=== PATIENT | female | born 1995 | race Caucasian/White ===

== ENCOUNTER 2021-02-25 11:53 | Outpatient (CLI) | payer BC, SELFPAY ==
[2021-02-25 12:53] VITALS: BP 128/79; PULSE 100; TEMP 37.3
[2021-02-25 13:08] VITALS: BP 128/79; PULSE 100
--- NOTE | 2021-02-25 13:26 | W.OBNST ---
Date of service: 02/25/21 Time of Service: 13:26 NST Evaluation Reason for NST Reasons for Nonstress Test: GDM- PO MEDICATION Gestational Age Gestational Age in Weeks and Days: 32 Weeks and 5Days Test and Monitor Explained Test/Monitor Explained: Test Explained, Monitor Explained and Patient Verbalized Understanding Vital Signs Blood Pressure: 128/79 Pulse: 100 Temperature: 37.3 C NST Information Date on Monitor: 02/25/21 Time on Monitor: 12:53 Date off Monitor: 02/25/21 Time off Monitor: 13:20 Total Time on Monitor: 27 NST Interventions: PO Hydration and Reposition Patient NST Evaluation Patient States Movement: Present Variability: Moderate 6-25 bpm Accelerations: 15x15 Decelerations: None NST Results: Reactive Note NST Note Note: Pt reported cramping and spotting today, wearing a pad, had one small clot. Reported some contraction pain low in her abdomen about every 10 minutes. No sex recently, no new activities or falls. Had her present for NST and exam. NST was category one, reactive. Good accels despite early GA. No contractions while here. No bleeding on exam. SVE 0/high/long. discharge consistent with Vaginal candidiasis. This could possibly have caused vaginal irritation and spotting. Recommend treatment with miconazole. She has also not yet picked up Metformin as prescribed . Encouraged her to do so today. DC home now. Call if any ongoing bleeding. Otherwise, fup as scheduled 03/08. NST Reviewed and Verified by: Brenton Anders
[2021-02-25 13:30] VITALS: BP 128/79; PULSE 100; TEMP 37.3
== END 2021-02-25 13:28 | disposition home health service (06) ==
LOC: BCD 12:45 → OBS 12:51
PROVIDERS: PCP Family Medicine; Visit Provider Family Medicine
DX: O24.415 Gestational diabetes mellitus in pregnancy, controlled by oral hypoglycemic drugs (principal); Z3A.32 32 weeks gestation of pregnancy
CPT/HCPCS: 59025

== ENCOUNTER 2021-03-22 01:10 | Outpatient (CLI) | payer BC, SELFPAY ==
--- NOTE | 2021-03-22 | DI.US_ITS ---
Exam(s) US OB DELIO WEIGHT EXAM: US OB DELIO WEIGHT CLINICAL HISTORY: GESTATIONAL DIABETES IN ,o24.419,F/U. TECHNIQUE: Transabdominal obstetrical ultrasound was performed. COMPARISON: No exams were available for comparison FINDINGS: There is a single viable intrauterine gestation with cardiac activity identified-108 bpm The fetus is presently in cephalic position . Amniotic fluid: There is a normal amount of amniotic fluid with an DELIO of 12.5cm. Placental location: The placenta is anterior grade 2,with no evidence of placenta previa. Dating parameters place this at approximately 36 weeks and 6 days gestational age, implying EVAN of April 13, 2021. BPD measures 36 weeks and 2 days HC measures 37 weeks and 2 days AC measures 37 weeks and 1 day FL measures 36 weeks and 5 days Estimated weight is 3088 gm-6 pounds 13 ounces Fetus is at the 72nd percentile on the Hadlock scale. IMPRESSION:: Viable 3rd trimester gestation, as described above. This is presently in cephalic position. Normal amount of amniotic fluid Anterior placenta. No placenta previa. DATA REPOSITORY:
== END 2021-03-22 01:30 ==
PROVIDERS: PCP Family Medicine; Visit Provider Family Medicine
DX: O24.419 Gestational diabetes mellitus in pregnancy, unspecified control (principal)
CPT/HCPCS: 76816

== ENCOUNTER 2021-04-08 16:51 | Outpatient (CLI) | payer BC, SELFPAY ==
[2021-04-08 17:11] VITALS: BP 135/73; PULSE 94
[2021-04-08] MEDS: Lactated Ringers 1,000 ML 1000 ML IV (17:56)
[2021-04-08] MEDS: Normal Saline Flush 10 ML SYR ×2 (17:58)
[2021-04-08 18:50] VITALS: RESP 18; TEMP 37
[2021-04-08 19:02] VITALS: BP 146/72; PULSE 86
[2021-04-08 19:36] VITALS: BP 144/69; PULSE 83; TEMP 37.1
--- NOTE | 2021-04-08 19:45 | NUR.NOTE ---
Nursing Note: SBAR recieved from Qiana harper urbano. RN to bedside. Pt up to void and reporting painful contractions q3-5 min. Pt also reporting pressure and stabbing in my vagina. Denies vaginal bleeding or leaking of fluid. Reports active fetus. LR infusion complete and stopped. POC adryan SVE at 2030
--- NOTE | 2021-04-08 20:43 | NUR.NOTE ---
Nursing Note: SVE /-4.Dr Brenton Hernandes notified and recommended discharge.
--- NOTE | 2021-04-08 21:09 | NUR.NOTE ---
Nursing Note: Pt discharged home to self care with FOB. Pt educated to return to hospital for LOF, vaginal bleeding, reduced movement, increasing signs of labor, fever or for any other concerning changes. Pt agreeable. All belongings with patient upon discharge.
== END 2021-04-08 21:12 | disposition home or self-care (01) ==
LOC: OBS 20:56 → BCD 05-10 11:54
PROVIDERS: PCP Family Medicine; Visit Provider Family Medicine
DX: O47.1 False labor at or after 37 completed weeks of gestation (principal)
CPT/HCPCS: 96365

== ENCOUNTER 2021-04-10 12:40 | Inpatient (IN) | payer BC, SELFPAY ==
[2021-04-10] VITALS (51 sets, daily range): BP systolic 123–165; BP diastolic 56–95; PULSE 61–105; RESP 16; TEMP 37; O2SAT 97–100; BMI 42.1
--- NOTE | 2021-04-10 12:51 | W.PM.OBHPL1 ---
Date of service: 04/10/21 Time of Service: 12:53 Assessment and Plan Assessment and plan (1) : Status: Acute Assessment and plan: 25yo with Rh+ RI GBS- presents for IOL for GDM controlled with metformin at 39w. SVE on presentation is 3/690/-3/soft/mid, bishops of 7 so will proceed with Pitocin induction. FHT category 1 currently. Increased risk of PPH and Shoulder dystocia given GDM and history of preeclampsia. Anticipate vaginal delivery. Qualifiers: Weeks of gestation: 39 weeks Qualified Code(s): Z3A.39 - 39 weeks gestation of (2) Gestational diabetes mellitus: Status: Acute Assessment and plan: see above Qualifiers: Gestational diabetes mellitus control: oral hypoglycemic-controlled Trimester: third trimester Qualified Code(s): O24.415 - Gestational diabetes mellitus in , controlled by oral hypoglycemic drugs (3) History of pre-eclampsia: Status: Acute Assessment and plan: see above. OB-HPI Labor/Delivery History of Present Illness Reason for Visit: Rule Out Chief Complaint: Scheduled Induction of Labor Indication for Induction: Gestational Diabetes. EVAN Calculator Estimated Delivery Date Method Current WG Current Estimate 04/17/21 LMP (Certain) 39w 0d Other Estimates 04/13/21 Ultrasound #1 39w 4d History of Present Expected Delivery Route/Plan Specific Issues/Plan Assessment: History Reviewed & Current Narrative: Pinky is a 25yo at 39w by first tri ultrasound consistent with LMP. She is Rh+ RI GBS-. She has a history of preeclampsia and PPH in her first . During this , she has had GDM well controlled on Metformin. She presents today for scheduled induction at 39w for GDM. She has been prodroming for several days now and presents at SVE of 3/60/-3/soft/mid, bishops score of 7. Review of Systems All systems reviewed & are unremarkable except as noted in HPI and below Gastrointestinal Gastrointestinal: Reports nausea PFSH All Active Problems (Updated 04/10/21 @ 13:01 by Brenton Anders) History of pre-eclampsia (Acute) Gestational diabetes mellitus (Acute) (Acute) Social History Smoking/Tobacco Use Status: Never Smoking risk assessment performed?: Yes Exam Physical Exam Vital Signs Reviewed: Yes Constitutional Constitutional: no acute distress Detailed Labor and Delivery Exam Dilation: 3 Effacement (%): 60 station: -3 Cervix position: mid Consistency: soft Davila Score: Cervical Points Exam 0 1 2 3 Dilation Closed 1-2cm 3-4 cm 5-6cm Effacement 0-30% 40-50% 60-70% 80% Consistency Firm Medium Soft Station -3 -2 -1,0 +1,+2 Position Posterior Mid Anterior DAVILA Score(Cervical Ripeness Score): 7 Amniotic Membrane Status: Intact Monitor Mode: External Contraction Frequency(min): none Fetus A Heart Rate Baseline: 150 Monitor Accelerations: 15 X 15 Monitor Decelerations: None Variability: Moderate (6-25 BPM) Presentation: Cephalic Categories: Category I HEENT Exam HEENT Exam: Normal Respiratory Exam Respiratory Exam: Normal Cardiovascular Exam Cardiovascular Exam: Normal Abdominal Exam Abdominal Exam: Normal Exam Exam: Normal Extremities Exam Extremities Exam: Normal Neurological Exam Neurological Exam: Normal Psychiatric Exam Psychiatric Exam: Normal Results Results Group Beta Strep: Negative Rubella Status: Immune Varicella Immunity: Not Tested Risk Assessment Risk for Shoulder Dystocia Historical/Initial OB: POSITIVE FOR: Pre- BMI>30 Increased Risk?: Yes Counseling: Yes Date/Initial: [facility] [place] 04/10/21 Risk for Pre-Eclampsia Daily Dose ASA Indicated: Yes Date Initiated/Initials: [facility] [place] 04/10/21 Yes, if one or more: POSTIVE FOR: Hx Pre-E/Gest HTN Yes, if 2 or more: POSITIVE FOR: BMI>30 Risk for Post- Hemorrhage Initial: POSITIVE FOR: Previous PPH At Risk?: Yes Interventions: none Counseled re: Active Management: Yes Date/Initials: [facility] [place] 04/10/21 Risks Reviewed Risks Reviewed Upon Admission: Yes
[2021-04-10 13:28] LABS: HCT 35.3 % (36.0-46.0); HGB 11.2 g/dL (11.2-15.7); MCH 27.3 pg (27.0-33.0); MCHC 31.7 % (32.0-36.0); MCV 86.1 fL (80-95); MPV 11.8 fL (8.0-11.0); Platelet Count 290 10^3/uL (130-400); RDW 12.9 % (11.7-14.6); RDW-SD 40.1 fL; WBC 9.74 10^3/uL (4.4-10.8)
[2021-04-10 13:32] LABS: Source Nasal/Nares
[2021-04-10 14:14] LABS: COVID-19 PCR Negative (Negative)
[2021-04-10] MEDS: Normal Saline Flush 10 ML SYR IVP (14:27)
[2021-04-10] MEDS: Oxytocin/Normal Saline 30 UNIT/500 ML BAG 2 UNITS IV (14:40)
[2021-04-10] MEDS: Lactated Ringers 1,000 ML 125 ML IV (14:40)
--- NOTE | 2021-04-10 16:07 | W.PM.OBNL1 ---
Date of service: 04/10/21 Time of Service: 16:07 Informed Consent Informed Consent: Induction of Labor Contractions Monitor Mode: External Contraction Frequency(min): 5-7 Contraction Duration(sec): 60 Intensity: Mild Fetus A Monitor: External (US) Heart Rate Baseline: 150 Presentation: Cephalic Variability: Moderate (6-25 BPM) Categories: Category I FHR Rhythm: Regular Characteristics: Normal Accelerations: 15 X 15 Decelerations: None Amniotic Membrane Status: Intact Assessment and Plan Assessment and plan (1) : Status: Acute Assessment and plan: Dotty is doing well. She is on Pitocin 10u now, barely feeling contractions although present on monitor. Will continue to increase pit as possible. Nausea well controlled. Encouraged her to move, walk, get on the ball, etc... Qualifiers: Weeks of gestation: 39 weeks Qualified Code(s): Z3A.39 - 39 weeks gestation of (2) Gestational diabetes mellitus: Status: Acute Qualifiers: Gestational diabetes mellitus control: oral hypoglycemic-controlled Trimester: third trimester Qualified Code(s): O24.415 - Gestational diabetes mellitus in , controlled by oral hypoglycemic drugs Objective Abnormal lab results 04/10/21 Range/Units 13:18 Hct 35.3 L (36.0-46.0) % MCHC 31.7 L (32.0-36.0) % MPV 11.8 H (8.0-11.0) fL Temp Pulse Resp BP Pulse Ox 37.0 C 84 16 136/65 98 04/10/21 14:54 04/10/21 14:55 04/10/21 14:54 04/10/21 14:54 04/10/21 14:55 Laboratory Results WBC 9.74 10^3/uL (4.4-10.8) 04/10/21 13:18 RBC 4.10 10^6/uL (3.93-5.22) 04/10/21 13:18 Hgb 11.2 g/dL (11.2-15.7) 04/10/21 13:18 Hct 35.3 % (36.0-46.0) L 04/10/21 13:18 MCV 86.1 fL (80-95) 04/10/21 13:18 MCH 27.3 pg (27.0-33.0) 04/10/21 13:18 MCHC 31.7 % (32.0-36.0) L 04/10/21 13:18 RDW 12.9 % (11.7-14.6) 04/10/21 13:18 Plt Count 290 10^3/uL (130-400) 04/10/21 13:18 MPV 11.8 fL (8.0-11.0) H 04/10/21 13:18 COVID-19 Source Nasal/Nares 04/10/21 13:25 SARS-CoV-2 (PCR) Negative (Negative) 04/10/21 13:25 Patient ABO/Rh O Positive 04/10/21 13:18 Antibody Screen NEGATIVE 04/10/21 13:18 Vital Signs Reviewed: Yes Subjective Patient Reports: No new Complaints Interval history since last seen: Pitocin was started at about 3pm, and is now up to 10u. She is starting to feel contractions mildly. They are showing on toco every 5-7 minutes. No other complaints. Results Hemoglobin/Hematocrit: Hgb 11.2 g/dL (11.2-15.7) 04/10/21 13:18 Hct 35.3 % (36.0-46.0) L 04/10/21 13:18 Abnormal Lab Findings: Abnormal Labs 04/10/21 13:18 Hct 35.3 L MCHC 31.7 L MPV 11.8 H
--- NOTE | 2021-04-10 17:58 | W.PM.OBNL1 ---
Date of service: 04/10/21 Time of Service: 17:58 Informed Consent Informed Consent: Induction of Labor Pelvic Exam Dilation: 5 Effacement (%): 70 station: -2 Cervix Position: mid Consistency: soft Vaginal Exam Presentation: Cephalic Contractions Monitor Mode: External Contraction Frequency(min): 2-3 Contraction Duration(sec): 45 Intensity: Mild Fetus A Monitor: External (US) Heart Rate Baseline: 150 Presentation: Cephalic Variability: Moderate (6-25 BPM) Categories: Category I FHR Rhythm: Regular Characteristics: Normal Accelerations: 15 X 15 Decelerations: None Amniotic Membrane Status: Intact Assessment and Plan Assessment and plan (1) : Status: Acute Assessment and plan: Jay Jay continues to do well, aware of ctx but not painful. Ctx have increased in frequency but not intensity. Baby is still too high for AROM, but we discussed that as a likely next step when baby moves down a bit more. Encouraged her to walk, be on the ball, etc... FHT Category 1. Vitals WNL. Qualifiers: Weeks of gestation: 39 weeks Qualified Code(s): Z3A.39 - 39 weeks gestation of (2) Gestational diabetes mellitus: Status: Acute Qualifiers: Gestational diabetes mellitus control: oral hypoglycemic-controlled Trimester: third trimester Qualified Code(s): O24.415 - Gestational diabetes mellitus in , controlled by oral hypoglycemic drugs Objective Abnormal lab results 04/10/21 Range/Units 13:18 Hct 35.3 L (36.0-46.0) % MCHC 31.7 L (32.0-36.0) % MPV 11.8 H (8.0-11.0) fL Temp Pulse Resp BP Pulse Ox 37.0 C 66 16 134/70 98 04/10/21 14:54 04/10/21 17:56 04/10/21 14:54 04/10/21 17:31 04/10/21 17:56 Laboratory Results WBC 9.74 10^3/uL (4.4-10.8) 04/10/21 13:18 RBC 4.10 10^6/uL (3.93-5.22) 04/10/21 13:18 Hgb 11.2 g/dL (11.2-15.7) 04/10/21 13:18 Hct 35.3 % (36.0-46.0) L 04/10/21 13:18 MCV 86.1 fL (80-95) 04/10/21 13:18 MCH 27.3 pg (27.0-33.0) 04/10/21 13:18 MCHC 31.7 % (32.0-36.0) L 04/10/21 13:18 RDW 12.9 % (11.7-14.6) 04/10/21 13:18 Plt Count 290 10^3/uL (130-400) 04/10/21 13:18 MPV 11.8 fL (8.0-11.0) H 04/10/21 13:18 COVID-19 Source Nasal/Nares 04/10/21 13:25 SARS-CoV-2 (PCR) Negative (Negative) 04/10/21 13:25 Patient ABO/Rh O Positive 04/10/21 13:18 Antibody Screen NEGATIVE 04/10/21 13:18 Subjective Patient Reports: No new Complaints Interval history since last seen: Pitocin is up to 14u. She continues to feel contractions but they are not painful. No new complaints. Results Hemoglobin/Hematocrit: Hgb 11.2 g/dL (11.2-15.7) 04/10/21 13:18 Hct 35.3 % (36.0-46.0) L 04/10/21 13:18 Abnormal Lab Findings: Abnormal Labs 04/10/21 13:18 Hct 35.3 L MCHC 31.7 L MPV 11.8 H
--- NOTE | 2021-04-10 19:22 | W.PM.OBNL1 ---
Date of service: 04/10/21 Time of Service: 19:28 Informed Consent Informed Consent: Augmentation of Labor and Induction of Labor Pelvic Exam Dilation: 6 Effacement (%): 80 station: 0 Position: CAROL ANN Cervix Position: anterior Consistency: soft Vaginal Exam Presentation: Vertex Pooling: Negative Nitrazine: Negative Ferning: Present ROM Plus: Negative Contractions Monitor Mode: External Contraction Frequency(min): q2 Contraction Duration(sec): 40 Intensity: Moderate Fetus A Monitor: Telemetry Heart Rate Baseline: 150 Presentation: Vertex Variability: Moderate (6-25 BPM) Categories: Category I FHR Rhythm: Regular Characteristics: Normal Accelerations: 10 X 10 Decelerations: None Amniotic Membrane Status: Intact Assessment Note: cat 1 fht strong q1-2 ctx intact membranes Objective Abnormal lab results 04/10/21 Range/Units 13:18 Hct 35.3 L (36.0-46.0) % MCHC 31.7 L (32.0-36.0) % MPV 11.8 H (8.0-11.0) fL Temp Pulse Resp BP Pulse Ox 37.0 C 67 16 134/70 98 04/10/21 14:54 04/10/21 18:01 04/10/21 14:54 04/10/21 17:31 04/10/21 18:01 Laboratory Results WBC 9.74 10^3/uL (4.4-10.8) 04/10/21 13:18 RBC 4.10 10^6/uL (3.93-5.22) 04/10/21 13:18 Hgb 11.2 g/dL (11.2-15.7) 04/10/21 13:18 Hct 35.3 % (36.0-46.0) L 04/10/21 13:18 MCV 86.1 fL (80-95) 04/10/21 13:18 MCH 27.3 pg (27.0-33.0) 04/10/21 13:18 MCHC 31.7 % (32.0-36.0) L 04/10/21 13:18 RDW 12.9 % (11.7-14.6) 04/10/21 13:18 Plt Count 290 10^3/uL (130-400) 04/10/21 13:18 MPV 11.8 fL (8.0-11.0) H 04/10/21 13:18 COVID-19 Source Nasal/Nares 04/10/21 13:25 SARS-CoV-2 (PCR) Negative (Negative) 04/10/21 13:25 Patient ABO/Rh O Positive 04/10/21 13:18 Antibody Screen NEGATIVE 04/10/21 13:18 Interventions Pain Management (given discomfort and patient request will proceed with ordering epidural - anes aware. Good cervical change in past hour - now /0 station) Interventions: Epidural . Results Hemoglobin/Hematocrit: Hgb 11.2 g/dL (11.2-15.7) 04/10/21 13:18 Hct 35.3 % (36.0-46.0) L 04/10/21 13:18 Abnormal Lab Findings: Abnormal Labs 04/10/21 13:18 Hct 35.3 L MCHC 31.7 L MPV 11.8 H
--- NOTE | 2021-04-10 19:41 | W.ANESPRE ---
General Info Date of Service Date Performed: 04/10/21 Height: 5 ft 8 in Weight: 125.645 kg Body Mass Index (BMI): 42.1 Meds Allergies and Home Medications Allergies Allergy/AdvReac Type Severity Reaction Status Date / Time cefprozil Allergy Unverified 04/10/21 19:26 Home Medication Medication Instructions Recorded aspirin 81 mg PO DAILY 04/10/21 metformin 1,000 mg PO DAILY 04/10/21 Current Visit Medications: Current Medications Generic Name Dose Route Start Last Admin Trade Name Freq PRN Reason Stop Dose Admin Fentanyl/Ropivacaine 200 ml 04/10/21 19:15 Fentanyl/Ropivacaine 2 Mcg/Ml And 0.1% 200 Ml Cadd Cassette EP DIRECTED AJAY Sodium Chloride 500 mls @ 0 mls/hr 04/10/21 12:40 Saline 500ml Bag IV PRN PRN As Directed Ringer's Solution 1,000 mls @ 200 mls/hr 04/10/21 12:45 IV INFUSION AJAY Ringer's Solution 1,000 mls @ 125 mls/hr 04/10/21 13:00 04/10/21 14:40 IV 125 mls/hr INFUSION AJAY Administration Oxytocin/Sodium Chloride 30 unit in 500 mls @ 4 mls/hr 04/10/21 13:00 04/10/21 18:01 Pitocin/Normal Saline IV 14 milliunits/min INFUSION AJAY 14 mls/hr Titration Protocol 4 MILLIUNITS/MIN Ringer's Solution 500 mls @ 500 mls/hr 04/10/21 19:13 IV 04/10/21 20:12 BOLUS ONE IV Miscellaneous Supplies 1 each 04/10/21 12:45 Iv Access IV DIRECTED AJAY Sodium Chloride 0 ml 04/10/21 12:40 04/10/21 14:27 Normal Saline Flush 10 Ml Syr IVP 10 ml PRN PRN Administration Terbutaline Sulfate 0.25 mg 04/10/21 12:40 Terbutaline 1 Mg/Ml Vial SC PRN PRN PFSH Active Problems Active Problems: Problem Status Onset Code History of pre-eclampsia Z87.59 Gestational diabetes mellitus O24.419 Z34.90 Tobacco Smoking/Tobacco Use Status: Never Alcohol Alcohol Intake: former Substance Use Substance use: Never Prental History History 2 Para 1 Hx # Term Pregnancies Multiple births Hx # Pregnancies Ectopic pregnancies AB induced Hx Number of Living Children AB spontaneous Vital Signs and Lab Results Vital Signs Most Recent Vital Signs in EMR: Most Recent Vital Signs Temp Pulse Resp BP Pulse Ox 37.0 C 67 16 134/70 98 04/10/21 14:54 04/10/21 18:01 04/10/21 14:54 04/10/21 17:31 04/10/21 18:01 Lab Results Result Diagrams: 04/10/21 13:18 Blood Type / Crossmatch: Patient ABO/Rh O Positive 04/10/21 13:18 04/10/21 Antibody Screen NEGATIVE 04/10/21 13:18 04/10/21 Complete Blood Count: White Blood Count 9.74 10^3/uL (4.4-10.8) 04/10/21 13:18 04/10/21 Red Blood Count 4.10 10^6/uL (3.93-5.22) 04/10/21 13:18 04/10/21 Hemoglobin 11.2 g/dL (11.2-15.7) 04/10/21 13:18 04/10/21 Hematocrit 35.3 % (36.0-46.0) L 04/10/21 13:18 04/10/21 Platelet Count 290 10^3/uL (130-400) 04/10/21 13:18 04/10/21 Complete Metabolic Panel: No Data to Display Liver Function Panel: No Data to Display Coagulation Panel: No Data to Display Cardiac Panel: No Data to Display Arterial Blood Gas: No Data to Display Venous Blood Gas: No Data to Display Pancreas Panel: No Data to Display Thyroid Panel: No Data to Display Infectious Disease: Coronavirus (COVID-19)(PCR) Negative (Negative) 04/10/21 13:25 04/10/21 Coronavirus 2019 Source Nasal/Nares 04/10/21 13:25 04/10/21 Blood Cultures: No Data to Display Toxicology Panel: No Data to Display Panel: No Data to Display Anesthesia Assessment and Plan Anesthesia History Personal History: No History of Anesthesia Complications Family History: No Family History of Anesthesia Complications Exercise Tolerance Exercise Tolerance: Metabolic Equivalents>4 Pertinent Negatives Pertinent Negatives: No Symptoms of GERD, No Major Cardiovascular Symptoms or Complaints, No Major Pulmonary Symptoms or Complaints and No History of CVA/TIA Cardiac & Pulmonary Exam Cardiac Exam: Normal S1/S2 Heart Sounds Pulmonary Exam: Clear Bilateral Breath Sounds Implantable Cardiac Device Does patient have a Pacemaker or an ICD?: No Airway Exam Known Difficult Airway: No Mallampati Class: 2 Mouth Opening: Normal (> 3cm) Thyromental Distance: Greater than 3 cm Neck Range of Motion: Full ROM Neck Circumference: Normal Teeth Condition: Normal Dentition ASA Classification ASA Score: ASA 2 Emergency Case?: No NPO Status NPO Status: Full Stomach Status Status: Confirmed Anesthesia Plan Resuscitation Status: Full Code Anesthesia Technique: Epidural Anesthesia Airway Planned: Natural Airway Pain Management: Surgeon and patient request nerve block Monitors Used: Standard Monitors
--- NOTE | 2021-04-10 19:50 | W.PM.OBNL1 ---
Date of service: 04/10/21 Time of Service: 19:50 Informed Consent Informed Consent: Augmentation of Labor and Induction of Labor Objective Abnormal lab results 04/10/21 Range/Units 13:18 Hct 35.3 L (36.0-46.0) % MCHC 31.7 L (32.0-36.0) % MPV 11.8 H (8.0-11.0) fL Temp Pulse Resp BP Pulse Ox 37.0 C 67 16 134/70 98 04/10/21 14:54 04/10/21 18:01 04/10/21 14:54 04/10/21 17:31 04/10/21 18:01 Laboratory Results WBC 9.74 10^3/uL (4.4-10.8) 04/10/21 13:18 RBC 4.10 10^6/uL (3.93-5.22) 04/10/21 13:18 Hgb 11.2 g/dL (11.2-15.7) 04/10/21 13:18 Hct 35.3 % (36.0-46.0) L 04/10/21 13:18 MCV 86.1 fL (80-95) 04/10/21 13:18 MCH 27.3 pg (27.0-33.0) 04/10/21 13:18 MCHC 31.7 % (32.0-36.0) L 04/10/21 13:18 RDW 12.9 % (11.7-14.6) 04/10/21 13:18 Plt Count 290 10^3/uL (130-400) 04/10/21 13:18 MPV 11.8 fL (8.0-11.0) H 04/10/21 13:18 COVID-19 Source Nasal/Nares 04/10/21 13:25 SARS-CoV-2 (PCR) Negative (Negative) 04/10/21 13:25 Patient ABO/Rh O Positive 04/10/21 13:18 Antibody Screen NEGATIVE 04/10/21 13:18 Subjective Patient Reports: New Complaints Interval history since last seen: much more intense - anes present and initiating epidural Given sudden inc in discomfort and strength of ctx I checked cervix O: Now 7/80%/0 sta/CAROL ANN/intact membranes FHT - baseline 150, mod variability, no decela, 10X10 accels - c/w Cat 1 strip ctx q2 - strong lasting 45 sec Pelvis tested to 8# 4 oz afebrile BP 130/70 A: 39 week Active labor - induced due to GDM GDM - well controlled with oral metformin 1000 mg q hs P: Epidural being placed Expect S.Genereaux Results Hemoglobin/Hematocrit: Hgb 11.2 g/dL (11.2-15.7) 04/10/21 13:18 Hct 35.3 % (36.0-46.0) L 04/10/21 13:18 Abnormal Lab Findings: Abnormal Labs 04/10/21 13:18 Hct 35.3 L MCHC 31.7 L MPV 11.8 H
--- NOTE | 2021-04-10 20:18 | ANES.NEUR_ITS ---
Epidural/Spinal Catheter Date Performed: 04/10/21 Procedure Start: 19:58 Procedure Stop: 20:10 Requesting Provider: Aaron Alfred Procedure Location: Obstetrics Reason Performed: Labor Epidural Standard Monitors Applied: ECG, Blood Pressure and SpO2 Patient Position: Sitting Sedation Given (Indicate Dose Given): No Sedation given Patient Mental Status: Awake Sterility: Hand Hygiene, Surgical Cap, Surgical Mask, Sterile Gloves, Sterile Drape/Sheet and Chlorhexidine Procedure Location: L3-L4 Interspace Epidural Needle: Tuohy 17 Guage Needle Length: 7 Inch Needle Approach: Midline Epidural Procedure: Skin Prepped, Sterile Drape Placed, 1% Lidocaine to skin and subcutaneous tissue with 25G needle, Tuohy Needle placed, ALLEN to Saline Used, Epidural Catheter Placed, Negative Heme, Negative CSF Flow and Tuohy Needle Removed Catheter Placed?: Catheter Placed Test Dose (Indicate Dose Given): 5ml 1.5% Lidocaine with 1:200K Epinephrine Given Loss of Resistance Depth (cm): 7 Catheter depth at skin (cm): 10 Dressing: Sorbaview Dressing Placed and Dressing reinforced with Tape Epidural Provider Bolus (Indicate Dose Given): Total Ropivacaine 0.1% with Fentanyl 2mcg/ml Given from pump (ml) Dose:: 5 mL Add itives (Indicate Dose Given ): None Infusion Medication: Medication Infusion Began Medication Infusion: Ropivacaine 0.1% with Fentanyl 2mcg/ml Maintenance Infusion Rate (ml/hour): 5 PCEA Bolus Dose (ml): 5 Block Level: N/A Paresthesia: Right Paresthesia Duration: Transient Ultrasound: Not Used Number of Attempts (See previous attempts in note section): 1 Procedure Tolerated: No Complications and Patient tolerated well Procedure Outcome: Successful Performed By: Lizzette Boudreaux Supervised By: Feliciano Serrato
--- NOTE | 2021-04-10 20:47 | ANES.NEUR_ITS ---
Epidural/Spinal Catheter Date Performed: 04/10/21 Procedure Start: 08:34 Procedure Stop: 08:46 Requesting Provider: Aaron Alfred Procedure Location: Obstetrics Reason Performed: Labor Epidural Standard Monitors Applied: ECG, Blood Pressure and SpO2 Patient Position: Sitting Sedation Given (Indicate Dose Given): No Sedation given Patient Mental Status: Awake Sterility: Hand Hygiene, Surgical Cap, Surgical Mask, Sterile Gloves, Sterile Drape/Sheet and Chlorhexidine Procedure Location: L4-L5 Interspace Epidural Needle: Tuohy 17 Guage Needle Length: 3.5 Inch Needle Approach: Midline Epidural Procedure: Skin Prepped, Sterile Drape Placed, 1% Lidocaine to skin and subcutaneous tissue with 25G needle and Tuohy Needle placed Catheter Placed?: Catheter Placed (10) Test Dose (Indicate Dose Given): 5ml 1.5% Lidocaine with 1:200K Epinephrine Given Loss of Resistance Depth (cm): 10 Catheter depth at skin (cm): 15 Dressing: [place] Dressing Placed and Dressing reinforced with Tape Epidural Provider Bolus (Indicate Dose Given): Total Ropiv acaine 0.1% with Fentanyl 2mcg/ml Given from pump (ml) Dose:: 5 mL Additives (Indicate Dose Given ): None Infusion Medication: Medication Infusion Began Medication Infusion: Ropivacaine 0.1% with Fentanyl 2mcg/ml Maintenance Infusion Rate (ml/hour): 10 PCEA Bolus Dose (ml): 5 Block Level: N/A Paresthesia: None Ultrasound: Not Used Number of Attempts (See previous attempts in note section): 1 Procedure Tolerated: No Complications and Patient tolerated well Procedure Outcome: Successful Performed By: Feliciano Serrato
[2021-04-10] MEDS: FentaNYL/ROPIvacaine 2 mcg/ml and 0.1% 200 ML CADD Cassette EP (21:00)
--- NOTE | 2021-04-10 21:24 | W.OBDELIVERY ---
Date of service: 04/10/21 Time of Service: 21:25 OB Labor/ Delivery Information Providers Doctor: Aaron Alfred Nurse: Karyn Mitchell Nurse: Liat Garcia Labor/Delivery Information Group Beta Strep: Negative Rubella Status: Immune Varicella Immunity: Not Tested Shoulder Dystocia: No Stages of Labor Onset of Labor Date: 04/10/21 Onset of Labor Time: 19:00 Complete Dilatation Date: 04/10/21 Labor - Stage 1 Duration: 0 minutes ROM Baby A: 04/10/21 ROM Baby A: 21:00 ROM Total Time- Baby A: [id number] Delivery Date-Baby A: 04/10/21 Delivery Time-Baby A: 21:03 Placenta Delivery Date-Baby A: 04/10/21 Placenta Delivery Time-Baby A: 21:09 Labor-Stage 3 Duration: 6 minutes Total Length of Labor-Baby A: 2 hours and 3 minutes Placenta Status: Delivered Baby A Infant Gender: Male Gestational Status: Term (39-41.6 wks) Gestational Age in Weeks/Days: 39 Weeks and 0 Days
--- NOTE | 2021-04-10 21:28 | W.PM.OBNL1 ---
Date of service: 04/10/21 Time of Service: 21:37 Informed Consent Informed Consent: Augmentation of Labor and Induction of Labor Objective Abnormal lab results 04/10/21 Range/Units 13:18 Hct 35.3 L (36.0-46.0) % MCHC 31.7 L (32.0-36.0) % MPV 11.8 H (8.0-11.0) fL Temp Pulse Resp BP Pulse Ox 37.0 C 78 16 134/58 L 100 04/10/21 14:54 04/10/21 21:25 04/10/21 14:54 04/10/21 21:25 04/10/21 20:17 Laboratory Results WBC 9.74 10^3/uL (4.4-10.8) 04/10/21 13:18 RBC 4.10 10^6/uL (3.93-5.22) 04/10/21 13:18 Hgb 11.2 g/dL (11.2-15.7) 04/10/21 13:18 Hct 35.3 % (36.0-46.0) L 04/10/21 13:18 MCV 86.1 fL (80-95) 04/10/21 13:18 MCH 27.3 pg (27.0-33.0) 04/10/21 13:18 MCHC 31.7 % (32.0-36.0) L 04/10/21 13:18 RDW 12.9 % (11.7-14.6) 04/10/21 13:18 Plt Count 290 10^3/uL (130-400) 04/10/21 13:18 MPV 11.8 fL (8.0-11.0) H 04/10/21 13:18 COVID-19 Source Nasal/Nares 04/10/21 13:25 SARS-CoV-2 (PCR) Negative (Negative) 04/10/21 13:25 Patient ABO/Rh O Positive 04/10/21 13:18 Antibody Screen NEGATIVE 04/10/21 13:18 Subjective Interval history since last seen: Delivery Note: 25 yo @ 39 weeks. Induced due to GDM - oral meds and good control. With pitocin starting ~1 PM she slowly progressed to 5 cm by 1800 with mild/mod ctx and Cat 1 tracing. ~1900 ctx were more intense and after 2 attempts at epidural placement she was slightly less uncomfortable. ~2049 cervix was complete with bulging bag, CAROL ANN. Consistent Cat 1 tracing. Second stage huddle initiated. Given hx of tested pelvis low risk of SD. With shared decision making AROM yielded clear AF at about 2099. Brief use of Nitrous and one strong push led to . Intact perineum, loose nuchal cord times one - easily reduced and shoulders restituted and delivered readily. Spont resp effort - to mat chest for drying and skin to skin. He readily pinked up with 9/9. 3 V cord clamped at ~2 min of age and cut. Spont intact placenta ~10 min later. No calcifications or membrane staining, central insertion. Fundus quite firm 2 below umbilicus. Perineum and vaginal side fowler intact - no trauma. EBL 300 cc. Epidural turned off in expectation of ambulation once legs functioning normally. S. Genereaux Results Hemoglobin/Hematocrit: Hgb 11.2 g/dL (11.2-15.7) 04/10/21 13:18 Hct 35.3 % (36.0-46.0) L 04/10/21 13:18 Abnormal Lab Findings: Abnormal Labs 04/10/21 13:18 Hct 35.3 L MCHC 31.7 L MPV 11.8 H
--- NOTE | 2021-04-10 21:37 | W.NBHISTORY ---
Date of service: 04/10/21 Time of Service: 21:41 Exam General Apperance Within Normal Limits Skin Within Normal Limits Notable Details: minor vernix Neurological Normal Tone, Laurel, Grasp and Suck Musculosketal Within Normal Limits, Full Range Motion, Spontaneous Movement All Extremities, Intact Clavicles, Clavicles without Crepitus, Gluteal Folds Symmetrical, Spine within Normal Limit and Dimple Base Visualized Head Normal Fontanelles, Normacephalic and Sutures WNL EENT Mouth within Normal Limits, Ears within Normal Limits, Eyes within Normal Limits, Nose within Normal Limits and Face within Normal Limits Cardiovascular Within Normal Limits and Normal Pulses Respiratory Within Normal Limits Gastrointestinal Within Normal Limits, Soft and Patent Anus Umbilicus Within Normal Limits and Three Vessel Cord Genitourinary Normal Male Genitalia Delivery Delivery Info Gestational Age in Weeks/Days: 39 Weeks and 0 Days Gestational Status: Term (39-41.6 wks) Gender: Male Type of Delivery: Vaginal Delivery Date-Baby A: 04/10/21 Infant Delivery Time-Baby A: 21:03 Presentation: Cephalic Cephalic Position: Vertex Vertex Position: Right Occipital Anterior Breech Position: N/A Number of Cord Vessels: 3 Total Time of ROM: [id number] Amniotic Fluid Color: Clear Born En Route: No Shoulder Dystocia: No Vacuum Assisted Delivery: N/A Forcep Assisted Delivery: N/A Delivery Outcome: Liveborn -1 Minute Interval Heart Rate-1 minute: 100 BPM or Greater Respiratory Effort- 1 minute: Spontaneous/Strong Cry Muscle Tone-1 minute: Active Movement Reflex Response-1 minute: Prompt Response Color-1 minute: Bluish Hands or Feet Total Score-1 minute: 9 -5 Minute Interval Heart Rate- 5 minute: 100 BPM or Greater Respiratory Effort-5 minute: Spontaneous/Strong Cry Muscle Tone-5 minute: Active Movement Reflex Response-5 minute: Prompt Response Color-5 minute: Bluish Hands or Feet Total Score- 5 minute: 9 Maternal History Maternal Medical History Maternal History Summary Note: see record Genetic History Patients age 35 years or older as of EVAN: No Maternal Information Maternal History Age: 25 : 2 Para: 1 Expected Date of Delivery: 04/17/21 Number of Babies in Womb: 1 Gestational Age in Weeks/Days: 39 Weeks and 0 Days Infant Delivery Date-Baby A: 04/10/21 Maternal Labs Group Beta Strep Negative Rubella Hepatitis B Hepatitis C Antibody Blood Type Antibody Screen HIV Syphillis Gonorrhea Chlamydia Varicella Immunity Not Tested Labor/Delivery Information Reason for Induction: Gestational Diabetes Labor Anesthesia: None Attempted: No Maternal Complications: Precipitous Labor(<3hrs) Maternal Medications Steroids Given: None Reason Steroids Not Administered: N/A Note Note: Delivery Note: 25 yo @ 39 weeks. Induced due to GDM - oral meds and good control. With pitocin starting ~1 PM she slowly progressed to 5 cm by 1800 with mild/mod ctx and Cat 1 tracing. ~0 ctx were more intense and after 2 attempts at epidural placement she was slightly less uncomfortable. ~2049 cervix was complete with bulging bag, CAROL ANN. Consistent Cat 1 tracing. Second stage huddle initiated. Given hx of tested pelvis low risk of SD. With shared decision making AROM yielded clear AF at about 2100. Brief use of Nitrous and one strong push led to . Intact perineum, loose nuchal cord times one - easily reduced and shoulders restituted and delivered readily. Spont resp effort - to mat chest for drying and skin to skin. He readily pinked up with 9/9. 3 V cord clamped at ~2 min of age and cut. Spont intact placenta ~10 min later. No calcifications or membrane staining, central insertion. Fundus quite firm 2 below umbilicus. Perineum and vaginal side fowler intact - no trauma. EBL 300 cc. Epidural turned off in expectation of ambulation once legs functioning normally. S. Genereaux Visit Medications Visit Medications: Generic Name Dose Route Start Last Admin Trade Name Freq PRN Reason Stop Dose Admin Ringer's Solution 1,000 mls @ 125 mls/hr 04/10/21 13:00 04/10/21 14:40 IV 125 mls/hr INFUSION AJAY Administration Oxytocin/Sodium Chloride 30 unit in 500 mls @ 4 mls/hr 04/10/21 13:00 04/10/21 18:01 Pitocin/Normal Saline IV 14 milliunits/min INFUSION AJAY 14 mls/hr Titration Protocol 4 MILLIUNITS/MIN Sodium Chloride 0 ml 04/10/21 12:40 04/10/21 14:27 Normal Saline Flush 10 Ml Syr IVP 10 ml PRN PRN Administration
[2021-04-11 00:20] VITALS: BP 130/82; PULSE 84; RESP 18; TEMP 36.7
[2021-04-11 01:25] VITALS: BP 121/76; PULSE 84; RESP 16; TEMP 36.7
--- NOTE | 2021-04-11 06:41 | W.ANESPOSTOP ---
Postoperative Evaluation Date, Time and Location Date Performed: 04/11/21 Time Performed: 06:42 Patient Location: Day Surgery Unit Vital Signs Most Recent Imported Vital Signs: Most Recent Vital Signs Temp Pulse Resp BP Pulse Ox 36.7 C 84 16 121/76 100 04/11/21 01:25 04/11/21 01:25 04/11/21 01:04/11/21 01:04/10/21 20:17 Assessment Mental Status: Awake (Alert & Oriented to Patient Baseline) Airway and Respiratory Function: Patent airway with normal (patient baseline) respiratory exam Cardiovascular Function: Hemodynamically Stable Hydration Status: Adequately Hydrated Nausea & Vomiting: No Nausea or Vomiting Pain: Pt. Denies Any Pain Peripheral Nerve Block: Other (Appropriately resolving epidural) Postoperative Comments:: Patient currently sleeping. Seen last night post-. Discussed case with current RN.
[2021-04-11 08:00] VITALS: BP 129/76; PULSE 67; RESP 14; TEMP 37.1
[2021-04-11 16:38] VITALS: BP 133/83; PULSE 74; RESP 18; TEMP 36.4; O2SAT 99
--- NOTE | 2021-04-11 16:52 | W.PM.OBPNV1 ---
Date of service: 04/11/21 Time of Service: 16:52 Assessment and Plan Assessment and plan (1) : Status: Acute Assessment and plan: Doing well with normal post course. Voiding and passing jim, lochia normal, pain well controlled. Routine post care. Anticipate DC tomorrow. OCP for control. Qualifiers: Weeks of gestation: 39 weeks Qualified Code(s): Z3A.39 - 39 weeks gestation of (2) Gestational diabetes mellitus: Status: Acute Qualifiers: Gestational diabetes mellitus control: oral hypoglycemic-controlled Trimester: third trimester Qualified Code(s): O24.415 - Gestational diabetes mellitus in , controlled by oral hypoglycemic drugs Subjective Subjective Patient comments: No complaints baby status: Doing well, Nursing well, Supplemental feeding going well, Rooming in and Strong Bonding Observed feeding status: Breast and formula feeding Narrative: Doing well, pain and bleeding minimal. Voiding and passing gas, up and about without incident. She is nursing but worried he is not getting enough so supplementing as well. Exam Physical Exam Vital signs: Temp Pulse Resp BP Pulse Ox 36.4 C L 74 18 133/83 99 04/11/21 16:38 04/11/21 16:38 04/11/21 16:38 04/11/21 16:38 04/11/21 16:38 Vital Signs Reviewed: Yes Constitutional Constitutional: no acute distress HEENT Exam HEENT Exam: Normal Respiratory Exam Respiratory Exam: Normal Cardiovascular Exam Cardiovascular Exam: Normal Fundal Exam Fundus: Below Umbilicus and Firm Extremities Exam Extremity Exam: Normal Neurological Exam Neurological Exam: Normal Psychiatric Exam Psychiatric Exam: Normal Results Hemoglobin/Hematocrit: Hgb 11.2 g/dL (11.2-15.7) 04/10/21 13:18 Hct 35.3 % (36.0-46.0) L 04/10/21 13:18 Abnormal Lab Findings: Abnormal Labs 04/10/21 13:18 Hct 35.3 L MCHC 31.7 L MPV 11.8 H
[2021-04-11] MEDS: Acetaminophen 325 MG TAB 650 MG PO (17:58)
[2021-04-11 19:50] VITALS: BP 128/76; PULSE 72; RESP 18; TEMP 36.5; O2SAT 99
[2021-04-12 03:50] VITALS: BP 130/81; PULSE 78; TEMP 36.5
[2021-04-12 08:00] VITALS: BP 125/75; PULSE 67; RESP 14; TEMP 37.3
--- NOTE | 2021-04-12 12:50 | W.PM.OBDISCH ---
Date of service: 04/12/21 Time of Service: 12:50 DS: Diagnosis Discharge Diagnosis (1) : Status: Acute Asessment and Plan: 25y [id number] after induction for GDM. Uncomplicated labor and delivery as well as post course. She is nursing and formula feeding by choice. No issues with nursing. Voiding and passing gas. Ambulating without difficulty. Lochia normal and pain minimal. Will DC home today with follow up for baby Friday. Can stop Metformin now and will check sugars in clinic. (2) Gestational diabetes mellitus: Status: Acute Asessment and Plan: see above Discharge Plan Disposition Patient Disposition: HOME Condition: Good Discharge Details Reason For Visit: Induction Admit Date/Time: 04/10/21 12:40 Admit Provider: Brenton Anders Attending Provider: Brenton Anders Primary Care Provider: Brenton Anders Home Meds and New Rx's Prescriptions: No Action metformin 1,000 mg Tablet 1,000 mg PO DAILY RF: 0 aspirin 81 mg Tablet 81 mg PO DAILY RF: 0 Discharge Instructions Stand Alone Forms: BC Instructions, BC Post Vaginal Deliver Activity:: Activity as Tolerated Equipment/Supplies:: No Equipment Needed Diet:: As Tolerated Discharge Orders Discharge Orders: Discharge Order (Routine); Ordered 04/12/21 Ordered By: Brenton Anders OB:DS Summary Summary Vaginal Delivery Method: Spontaneaous Episiotomy Description: None Laceration Description: None Laceration Extension: N/A complications OB DS: none Time spent discussing smoking cessation with patient: 3 to 10 minutes Contraception Discussed Contraception Discussed: Yes Contraceptive Plan: Control Pill/Patch, Infant Gender-Baby A: Male weight: 3620 g Disposition of Baby A: Home Status at Discharge Functional status at discharge: independent ambulation Overall status at discharge: patient is not back to baseline Mental Status: mental status grossly normal Speech and Movement: speech and movement normal Mood: congruent mood Affect: normal affect Time Spent with Patient providing and/or coordinating discharge services: Less than 30 minutes Exam Physical Exam Vital signs: Temp Pulse Resp BP Pulse Ox 37.3 C 67 14 125/75 99 04/12/21 08:00 04/12/21 08:00 04/12/21 08:00 04/12/21 08:00 04/11/21 19:50 Vital Signs Reviewed: Yes Constitutional Constitutional: no acute distress HEENT Exam HEENT Exam: Normal Respiratory Exam Respiratory Exam: Normal Cardiovascular Exam Cardiovascular Exam: Normal Fundal Exam Fundus: Below Umbilicus and Firm Extremities Exam Extremity Exam: Normal Neurological Exam Neurological Exam: Normal Psychiatric Exam Psychiatric Exam: Normal PFSH All Active Problems (Updated 04/10/21 @ 13:01 by Brenton Anders) History of pre-eclampsia (Acute) Gestational diabetes mellitus (Acute) (Acute) Social History Smoking/Tobacco Use Status: Never Smoking risk assessment performed?: Yes Alcohol Intake: former Drug use: Never History History 2 Para 1 Hx # Term Pregnancies Multiple births Hx # Pregnancies Ectopic pregnancies AB induced Hx Number of Living Children AB spontaneous DS: Data Vitals/I&O Vitals and I&O: Vital Signs Temperature 37.3 C 04/12/21 08:00 Pulse 67 04/12/21 08:00 Pulse Rhythm Regular 04/12/21 08:00 Respiratory Rate 14 04/12/21 08:00 Respiratory Depth Normal 04/11/21 19:50 Blood Pressure 125/75 04/12/21 08:00 Blood Pressure Mean 91 04/12/21 08:00 Pulse Oximetry 99 04/11/21 19:50 Oxygen Delivery Method Room Air 04/10/21 12:48 Oxygen Flow Rate 0 04/10/21 12:48 Pain Level 8 04/11/21 17:58 Comment 04/10/21 14:54 Intake & Output 04/11/21 04/12/21 04/12/21 23:59 11:59 23:59 Other: Urine Color Yellow
== END 2021-04-12 14:20 | disposition home or self-care (01) | DRG 807 ==
PROVIDERS: Admitting Provider Family Medicine; PCP Family Medicine; Visit Provider Family Medicine
DX: O24.415 Gestational diabetes mellitus in pregnancy, controlled by oral hypoglycemic drugs (principal); Z37.0 Single live birth; Z3A.39 39 weeks gestation of pregnancy; O69.81X0 Labor and delivery complicated by cord around neck, without compression, not applicable or unspecified
CPT/HCPCS: 36415; 85027; 86850; 86900; 86901; 87635